=== PATIENT | female | born 1960 | race African-American/Black ===

== ENCOUNTER 2016-06-19 10:58 | Emergency (ER) | payer OTHER ==
[2016-06-19 11:09] VITALS: BP 140/78; PULSE 73; TEMP 98; BMI 31.2
--- NOTE | 2016-06-19 11:49 | PDOC ---
History of Present Illness - General Chief Complaint: Pain, Acute Stated Complaint: PAIN/ LT KNEE, LEG Time Seen by Provider: 06/19/16 11:31 History Source: Patient Exam Limitations: No Limitations - History of Present Illness Initial Comments: 06/19/16 11:46 55 yr female with left leg pain for 2 days started with pain in the knee then traveled to left calf and up thigh causing cramps at night. no trauma, no fever no foreign travel. no blood thinners. Pt is obese. Past History - Past Medical History Allergies/Adverse Reactions: Allergies Allergy/AdvReac Type Severity Reaction Status Date / Time No Known Allergies Allergy Verified 06/19/16 11:03 Home Medications: Ambulatory Orders Cyclobenzaprine HCl [Flexeril 10 mg] 5 mg PO TID PRN #21 tablet 06/19/16 Enalapril/Hydrochlorothiazide [Vaseretic 10-25 mg Tablet] 1 each PO DAILY Naproxen [Naprosyn -] 500 mg PO BID PRN #14 tablet 06/19/16 Oxycodone HCl/Acetaminophen [Percocet 5-325 mg Tablet] 1 - 2 tab PO Q4H Anemia: No Asthma: No Cancer: No Cardiac Disorders: No CVA: No COPD: No CHF: No Dementia: No Diabetes: No GI Disorders: No Disorders: No HTN: Yes (currently on treatment) Hypercholesterolemia: No Kidney Stones: No Liver Disease: No Suicide Attempt (Hx): No Seizures: No Thyroid Disease: No - Surgical History Abdominal Surgery: No Appendectomy: No Cardiac Surgery: No Cholecystectomy: No Lung Surgery: No Neurologic Surgery: No Orthopedic Surgery: No - Reproductive History PID: No - Psycho/Social/Smoking Cessation Hx Anxiety: No Suicidal Ideation: No Smoking History: Current every day smoker Have you smoked in the past 12 months: Yes Number of Cigarettes Smoked Daily: 6 Cigars Per Day: 0 Information on smoking cessation initiated: Yes 'Breaking Loose' booklet given: 06/19/16 Hx Alcohol Use: Yes Drug/Substance Use Hx: Yes Substance Use Type: Alcohol, Marijuana Hx Substance Use Treatment: Yes Review of Systems - Review of Systems Able to Perform ROS?: Yes Is the patient limited Syriac proficient: No Constitutional: No: Symptoms Reported HEENTM: No: Symptoms Reported Respiratory: No: Symptoms reported Cardiac (ROS): No: Symptoms Reported ABD/GI: No: Symptoms Reported, Abd. Pain w/ defecation : No: Symptoms Reported Musculoskeletal: Yes: See HPI *Physical Exam - Vital Signs Last Vital Signs Temp Pulse Resp BP Pulse Ox 98 F 73 16 140/78 100 06/19/16 11:04 06/19/16 11:04 06/19/16 11:04 06/19/16 11:04 06/19/16 11:04 - Physical Exam General Appearance: Yes: Nourished, Appropriately Dressed HEENT: positive: EOMI, VIKTORIA Neck: positive: Supple. negative: Tender Respiratory/Chest: positive: Lungs Clear, Normal Breath Sounds Cardiovascular: positive: Regular Rhythm, Regular Rate Gastrointestinal/Abdominal: positive: Normal Bowel Sounds, Soft Musculoskeletal: positive: Normal Inspection. negative: Vertebral Tenderness Extremity: positive: Normal Capillary Refill, Normal Inspection, Normal Range of Motion, Calf Tenderness, Other (nop swelling, no redness, FROM left hip, thigh, knee and ankle, mild lateral tenderness to the knee, no bony tenderness to hip or pelvis) Integumentary: positive: Normal Color, Dry, Warm ED Treatment Course - RADIOLOGY Radiology Studies Ordered: Category Date Time Status DUPLEX VASCUL US-1 LEG [US] Stat Ultrasound 06/19/16 11:44 Ordered Medical Decision Making - Medical Decision Making 06/19/16 11:48 cc: left knee pain (had xray yesterday at [facility] negative per report pt has with her) Pt also has prescription for MRI of left knee that pt has not made apt for as of yet. calf pain and spams at night on and off for 2-3 days , however pt states she has had this in the past. neg DVT negative DVT will prescribe flexeril and naprosyn pt states toradol helped the pain, feels better 06/19/16 13:40 *DC/Admit/Observation/Transfer Diagnosis at time of Disposition: Leg pain Qualifiers: Laterality: left Qualified Code(s): M79.605 - Pain in left leg Knee pain, left Qualifiers: Chronicity: acute Qualified Code(s): M25.562 - Pain in left knee - Discharge Dispostion Disposition: HOME Condition at time of disposition: Good - Prescriptions Prescriptions: Cyclobenzaprine HCl [Flexeril 10 mg] 5 mg PO TID PRN #21 tablet PRN Reason: Muscle Spasms Naproxen [Naprosyn -] 500 mg PO BID PRN #14 tablet PRN Reason: Pain - Referrals Referrals: Frida Kilgore [Primary Care Provider] - - Patient Instructions Additional Instructions: follow with the orthopedist Dr. Morgan for follow up and with your medical doctor take the naprosyn for pain and the flexeril for muscle spasm as directed
[2016-06-19] MEDS ORDERED: KETOROLAC TROMETHAMINE 60 MG/2 ML VIAL IM ONE (12:30)
[2016-06-19] MEDS ORDERED: KETOROLAC TROMETHAMINE 30 MG/1 ML VIAL ONE (12:32)
== END 2016-06-19 13:04 | disposition home or self-care (01) ==
LOC: JER 10:58
PROC: 3E0233Z Introduction of Anti-inflammatory into Muscle, Percutaneous Approach (ICD-10-PCS; principal; 2016-06-19)
DX: M25.562 Pain in left knee (principal); M79.605 Pain in left leg; F17.210 Nicotine dependence, cigarettes, uncomplicated; E66.9 Obesity, unspecified; Z68.31 Body mass index [BMI] 31.0-31.9, adult; I10 Essential (primary) hypertension
CPT/HCPCS: 93971-TC; 96372; 99281-25

== ENCOUNTER 2018-01-23 15:49 | Inpatient (IN) | payer OTHER ==
--- NOTE | 2018-01-23 16:14 | PDOC ---
Attending Attestation - HPI HPI: This patient is a 57 year old female with PMHx of hx of pre-DM, HTN, who presents with 2 days of body aches, chills, fever, and vomit. Patient comes in with diffuse myalgias. She notes a fever of 103 yesterday. Patient states that she vomited 3x this morning. She also reports 2 days of cough with yellow phlegm and some shortness of breath. She also notes decreased appetite for the past 2 days. Denies any rhinorrhea or nasal congestion. Denies any diarrhea, constipation, dysuria, hematuria, or hematochezia. Denies any chest pain or shortness of breath. - Physicial Exam PE: GENERAL: Awake, alert, and fully oriented, in no acute distress HEAD: No signs of trauma EYES: PERRLA, EOMI, sclera anicteric, conjunctiva clear ENT: Auricles normal inspection, hearing grossly normal, nares patent, oropharynx clear without exudates. Moist mucosa NECK: Normal ROM, supple, no lymphadenopathy, JVD, or masses LUNGS:Crackles in left lung base. No wheezes. HEART: Regular rate and rhythm, normal S1 and S2, no murmurs, rubs or gallops ABDOMEN: Soft, RLQ tenderness to deep palpation, normoactive bowel sounds. No guarding, no rebound. No masses EXTREMITIES: Normal range of motion, no edema. No clubbing or cyanosis. No cords, erythema, or tenderness NEUROLOGICAL: Cranial nerves II through XII grossly intact. Normal speech, normal gait SKIN: Warm, Dry, normal turgor, no rashes or lesions noted. <Deborah Branham - Last Filed: 01/23/18 17:31> - Medical Decision Making 01/23/18 18:23 Pt presents to the ED with cough, mild shortness of breath, diffuse myalgias and fever to 105. Also has nausea and vomiting. CXR shows evidence of L sided PNA. GIven high fever, will admit to medicine for continued management. Treated with broad spectrum antibiotics. <Sadaf Cooper - Last Filed: 01/23/18 18:26>
[2018-01-23] MEDS ORDERED: ACETAMINOPHEN 1000 MG/100 ML VIAL (NON FORMULARY) IVPB ONE (16:25)
[2018-01-23] MEDS ORDERED: ACETAMINOPHEN INJECTION 100 ML IVPB ONE (16:26)
--- NOTE | 2018-01-23 16:26 | PDOC ---
History of Present Illness - General Chief Complaint: SIRS, Suspected/Possible Stated Complaint: SICK Time Seen by Provider: 01/23/18 16:12 History Source: Patient Exam Limitations: No Limitations - History of Present Illness Initial Comments: 01/23/18 16:23 57 year old woman with history of prior alcohol abuse, pre-DM, HTN who presents with 2 days of coughing yellow phlegm, decreased appetite, body aches, chills, R sided abdominal pain and fever of 103F this AM w/ 3 episodes of NBNB emesis this AM. The patient denies diarrhea, constipation, dysuria, hematuria, blood in stool. Denies chest pain, shortness of breath or prior abdominal surgeries. She denies any recent travel or sick contacts. She denies rhinorrhea, nasal congestion or headaches. She denies any recent drug use or alcohol abuse. She has no other complaints at bedside. PMHX: as in HPI Meds: see below Allergies: NKDA Tob: none Etoh: none Rec drugs: none PCP: none Past History - Past Medical History Allergies/Adverse Reactions: Allergies Allergy/AdvReac Type Severity Reaction Status Date / Time No Known Allergies Allergy Verified 06/19/16 11:03 Home Medications: Ambulatory Orders Enalapril Maleate [Vasotec -] 5 mg PO DAILY 01/23/18 Hydrochlorothiazide [Hctz -] 25 mg PO DAILY 01/23/18 Meloxicam 7.5 mg PO PRN 01/23/18 Omeprazole 40 mg PO DAILY 01/23/18 Anemia: No Asthma: No Cancer: No Cardiac Disorders: No CVA: No COPD: No CHF: No Dementia: No Diabetes: No GI Disorders: No Disorders: No HTN: Yes (currently on treatment) Hypercholesterolemia: No Kidney Stones: No Liver Disease: No Seizures: No Thyroid Disease: No - Surgical History Abdominal Surgery: No Appendectomy: No Cardiac Surgery: No Cholecystectomy: No Lung Surgery: No Neurologic Surgery: No Orthopedic Surgery: No - Reproductive History PID: No - Suicide/Smoking/Psychosocial Hx Smoking History: Current every day smoker Have you smoked in the past 12 months: Yes Number of Cigarettes Smoked Daily: 5 Cigars Per Day: 0 Information on smoking cessation initiated: No 'Breaking Loose' booklet given: 06/19/16 Hx Alcohol Use: No Drug/Substance Use Hx: No Substance Use Type: Alcohol, Marijuana Hx Substance Use Treatment: Yes Review of Systems - Review of Systems Constitutional: Yes: See HPI, Chills, Diaphoresis, Fever HEENTM: No: Blurred Vision, Tinnitus Respiratory: Yes: Cough, Shortness of Breath Cardiac (ROS): No: Chest Pain, Palpitations, Syncope, Chest Tightness ABD/GI: Yes: See HPI, Diarrhea, Nausea, Vomiting. No: Constipated : No: Burning, Dysuria, Hematuria Musculoskeletal: No: Back Pain Integumentary: No: Rash Neurological: No: Headache, Numbness, Paresthesia, Tingling *Physical Exam - Vital Signs Last Vital Signs Temp Pulse Resp BP Pulse Ox 105.3 F H 88 20 123/65 93 L 01/23/18 16:11 01/23/18 16:11 01/23/18 16:11 01/23/18 16:11 01/23/18 16:11 - Physical Exam Comments: 01/23/18 17:03 GENERAL: Awake, alert, and fully oriented, tired,weak appearing slouching in bed , warm to touch HEAD: No signs of trauma, normocephalic, atraumatic EYES: PERRLA, EOMI, sclera anicteric, conjunctiva clear ENT: Auricles normal inspection, hearing grossly normal, nares patent, oropharynx clear without exudates. Moist mucosa NECK: Normal ROM, supple, no lymphadenopathy LUNGS: No distress, speaks full sentences, + rales in L base HEART: Regular rate and rhythm, normal S1 and S2, no murmurs, rubs or gallops, peripheral pulses normal and equal bilaterally. ABDOMEN: Soft, RLQ tenderness to deep palpation normoactive bowel sounds. No guarding, no rebound. No masses BACK: R CVA tenderness EXTREMITIES : Normal inspection, Normal range of motion, no edema. No clubbing or cyanosis. NEUROLOGICAL: Cranial nerves II through XII grossly intact. Normal speech, normal gait, no focal sensorimotor deficits SKIN: Warm, Dry, normal turgor, no rashes or lesions noted ED Treatment Course - LABORATORY CBC & Chemistry Diagram: 01/27/18 08:00 01/27/18 08:00 - RADIOLOGY Radiology Studies Ordered: Category Date Time Status CHEST X-RAY PORTABLE* [RAD] Stat Radiology 01/23/18 16:21 Ordered Medical Decision Making - Medical Decision Making 01/23/18 17:47 57 year old woman with history of prior alcohol abuse, pre-DM, HTN who presents with 2 days of coughing yellow phlegm, decreased appetite, body aches, chills, R sided abdominal pain and fever of 103F this AM w/ 3 episodes of NBNB emesis this AM. The patient denies diarrhea, constipation, dysuria, hematuria, blood in stool. DDX including but not limited to: sepsis 2/2 UTI vs pyelonephritis vs influenza vs appendicitis vs PNA W/U: - cbc, cmp, blood culture, lactic acid, PTT, PT/INR, trop, vbg - ua, ucx - EKG TX: - Vancomycin, Zosyn - Tylenol - 1L NS ED Course: 01/23/18 17:55 warm to touch, feels somewhat improved still fatigued. 01/23/18 18:17 influenza a and b negative WBC: 13.7 CXR: increased markings in L inrahilar area. Patient symptoms, history and physical exam consistent with pneumonia. CXR reading further supporting this diagnosis. As patient had abdominal tenderness on exam will assess for additional source for sepsis. Abd CT ordered. Pending read at this time. Medicine team contacted. Patient accepted to service. Patient informed of all lab and imaging results. Patient expressed understanding and agrees to plan for admission. *DC/Admit/Observation/Transfer Diagnosis at time of Disposition: Sepsis, Pneumonia - Discharge Dispostion Condition at time of disposition: Stable Decision to Admit order: Yes - Referrals - Patient Instructions - Post Discharge Activity
[2018-01-23] MEDS ORDERED: SODIUM CHLORIDE 1,000 ML IV SCH ×3 (16:30→20:45)
[2018-01-23] MEDS ORDERED: ONDANSETRON 4 MG/2 ML VIAL IVPUSH ONE (16:55)
[2018-01-23] MEDS ORDERED: VANCOMYCIN 1 GRAM (PRE-DOCKED) 1,000 MG/250 ML BAG IVPB ONE ×2 (16:56→17:03)
[2018-01-23] MEDS ORDERED: PIPERACILLIN/TAZOB 4.5 GM 4.5 GM in DEXTROSE 5%-WATER 100 ML IVPB ONE (16:56)
[2018-01-23] MEDS ORDERED: ONDANSETRON 4 MG/2 ML VIAL ONE (17:03)
[2018-01-23] MEDS ORDERED: PIPERACILLIN/TAZOB 4.5 GM 4.5 GM/100 ML BAG IVPB ONE (17:03)
[2018-01-23 17:10] LABS: VENOUS PC02 37.4 mmHg (38-52); VENOUS PH 7.47 (7.32-7.42)
[2018-01-23 17:11] LABS: VENOUS PO2 30.6 mmHg (28-48)
[2018-01-23 17:11] LABS: BASO % 0.3 % (0-2.0); HEMATOCRIT 38.5 % (32.4-45.2); HEMOGLOBIN 12.9 GM/dL (10.7-15.3); LYMPH % 5.5 % (8-40); MCH 27.8 pg (25.7-33.7); MCHC 33.4 g/dl (32.0-36.0); MEAN CELL VOLUME 83.2 fl (80-96); MEAN PLT VOLUME 9.4 fl (7.5-11.1); MONO % 2.8 % (3.8-10.2); NEUT % 91.4 % (42.8-82.8); PLATELET COUNT 210 K/MM3 (134-434); RBC 4.62 M/mm3 (3.60-5.2); RDW 14.8 % (11.6-15.6); WHITE BLOOD COUNT 13.7 K/mm3 (4.0-10.0)
[2018-01-23 17:33] LABS: INR 1.19 (0.83-1.09); PROTHROMBIN TIME (PATIENT) 14.1 SEC (9.7-13.0)
[2018-01-23 17:36] LABS: ACTIVATED PTT 38.3 SECONDS (25.2-36.5)
[2018-01-23 17:54] LABS: ALBUMIN 2.9 g/dl (3.4-5.0); ALK PHOS 60 U/L (45-117); ANION GAP 8 MMOL/L (8-16); BILIRUBIN,TOTAL 0.6 mg/dL (0.2-1); BLOOD UREA NITROGEN 9 mg/dL (7-18); CALCIUM 8.7 mg/dL (8.5-10.1); CHLORIDE 99 mmol/L (98-107); CO2 25 mmol/L (21-32); CREATININE 0.8 mg/dL (0.55-1.3); GLUCOSE,RANDOM 121 mg/dL (74-106); POTASSIUM 3.5 mmol/L (3.5-5.1); SGOT/AST 30 U/L (15-37); SGPT/ALT 24 U/L (13-61); SODIUM 133 mmol/L (136-145); TOT PROT 6.7 g/dl (6.4-8.2)
--- NOTE | 2018-01-23 18:42 | HP ---
CHIEF COMPLAINT: Cough x2 days PCP: Dr Kilgore HISTORY OF PRESENT ILLNESS: Pt is a 57 yo F with PMHx pre-DM, current everyday smoker, HTN, previous alcoholic (said last drink was 2012) presenting with 2 days hx of generalized body aches, chills, fever, and cough. Cough is productive of mucoid sputum, non bloody. There was associated nasal congestion and sorethroat for which she took theraflu with no relief. There is associated SOB worse with exertion but no PND or orthopnea. No leg swelling, no chest pain. She went to her PCP today and was referred when she was noted to be unstable on her feet and very weak. She reports loss of appetite for the past 2 days. Pt denies syncope, diarrhea, dysuria, hematuria or flank pain. She noted some groin/RLQ pain that she did not characterize. Pt denies taking flu vaccine/pneumonia vaccine. Works in a skilled nursing as an aide, otherwise notes no sick contacts. ER course was notable for: (1) Tmax-105.3, WBC-13.7, Na-133, LA-1.3 (2) Chest Xray- L infiltrate or atelectasis (3) Vanc-1g/zosyn 4.5, 1L (4) EKG- NSR 87bpm, nl axis, NSTE/NSTD, [id number] Recent Travel: PAST MEDICAL HISTORY: Per HPI PAST SURGICAL HISTORY: Denies Social History: [employer] per day [id number] Alcohol: Was an alcoholic (says last drink was 2012) Drugs: Denies Family History: Father DM, Mother Heart dx (recommended for stents) Allergies No Known Allergies Allergy (Verified 06/19/16 11:03) HOME MEDICATIONS: Ambulatory Orders Enalapril Maleate [Vasotec -] 5 mg PO DAILY 01/23/18 Hydrochlorothiazide [Hctz -] 25 mg PO DAILY 01/23/18 Meloxicam 7.5 mg PO PRN 01/23/18 Omeprazole 40 mg PO DAILY 01/23/18 REVIEW OF SYSTEMS CONSTITUTIONAL: Absent: fever+, chills+, diaphoresis, generalized weakness+, malaise+, loss of appetite+, weight change HEENT: Absent: rhinorrhea+, nasal congestion+, throat pain+, throat swelling, difficulty swallowing, mouth swelling, ear pain, eye pain, visual changes CARDIOVASCULAR: Absent: chest pain, syncope, palpitations, irregular heart rate, lightheadedness +, peripheral edema RESPIRATORY: Absent: cough, shortness of breath, dyspnea with exertion, orthopnea, wheezing, stridor, hemoptysis GASTROINTESTINAL: Absent: abdominal pain, abdominal distension, nausea, vomiting, diarrhea, constipation, melena, hematochezia GENITOURINARY: Absent: dysuria, frequency, urgency, hesitancy, hematuria, flank pain, genital pain MUSCULOSKELETAL: Absent: myalgia, arthralgia, joint swelling, back pain, neck pain SKIN: Absent: rash, itching, pallor HEMATOLOGIC/IMMUNOLOGIC: Absent: easy bleeding, easy bruising, lymphadenopathy, frequent infections ENDOCRINE: Absent: unexplained weight gain, unexplained weight loss, heat intolerance, cold intolerance NEUROLOGIC: Absent: headache, focal weakness or paresthesias, dizziness, unsteady gait, seizure, mental status changes, bladder or bowel incontinence PSYCHIATRIC: Absent: anxiety, depression, suicidal or homicidal ideation, hallucinations. PHYSICAL EXAMINATION Vital Signs - 24 hr 01/23/18 01/23/18 01/23/18 16:11 16:40 18:31 Temperature 105.3 F H 99.7 F H Pulse Rate 88 Pulse Rate [ 78 68 Apical] Respiratory 20 18 18 Rate Blood Pressure 123/65 Blood Pressure 116/60 102/78 [Left Arm] O2 Sat by Pulse 93 L 96 98 Oximetry (%) GENERAL: Awake, alert, and fully oriented, in no acute distress. HEAD: Normal with no signs of trauma. EYES: Pupils equal, round and reactive to light, extraocular movements intact, sclera anicteric, conjunctiva clear. EARS, NOSE, THROAT: Ears normal, nares patent, oropharynx clear without exudates. Moist mucous membranes. NECK: Normal range of motion, supple, no JVD, LUNGS: Bilateral crackles L>>R. HEART: Regular rate and rhythm, normal S1 and S2 , 2/6 diastolic murmur. ABDOMEN: Soft, nontender, not distended, normoactive bowel sounds, no guarding, no rebound, no masses. MUSCULOSKELETAL: Normal range of motion at all joints. No bony deformities or tenderness. No CVA tenderness. LOWER EXTREMITIES: 2+ pulses, warm, well-perfused. No calf tenderness. No peripheral edema. NEUROLOGICAL: Cranial nerves II-XII intact. Normal speech. Gait not observed, Symmetrical face and tongue, Normal tone, strength and sensation globally CBC, BMP 01/23/18 16:59 01/23/18 16:45 Laboratory Results - last 24 hr 01/23/18 01/23/18 01/23/18 16:45 16:45 16:45 WBC RBC Hgb Hct MCV MCH MCHC RDW Plt Count MPV Absolute Neuts (auto) Neutrophils % Lymphocytes % Monocytes % Eosinophils % Basophils % Nucleated RBC % PT with INR 14.10 H INR 1.19 H PTT (Actin FS) 38.3 H VBG pH 7.47 H POC VBG pCO2 37.4 L POC VBG pO2 30.6 Mixed VBG HCO3 26.7 H Sodium 133 L Potassium 3.5 Chloride 99 Carbon Dioxide 25 Anion Gap 8 BUN 9 Creatinine 0.8 Creat Clearance w eGFR > 60 Random Glucose 121 H Lactic Acid Calcium 8.7 Total Bilirubin 0.6 AST 30 ALT 24 Alkaline Phosphatase 60 Troponin I 0.02 Total Protein 6.7 Albumin 2.9 L 01/23/18 01/23/18 16:45 16:59 WBC 13.7 H RBC 4.62 Hgb 12.9 Hct 38.5 MCV 83.2 MCH 27.8 MCHC 33.4 RDW 14.8 Plt Count 210 D MPV 9.4 Absolute Neuts (auto) 12.6 H Neutrophils % 91.4 H Lymphocytes % 5.5 L Monocytes % 2.8 L Eosinophils % 0.0 Basophils % 0.3 Nucleated RBC % 0 PT with INR INR PTT (Actin FS) VBG pH POC VBG pCO2 POC VBG pO2 Mixed VBG HCO3 Sodium Potassium Chloride Carbon Dioxide Anion Gap BUN Creatinine Creat Clearance w eGFR Random Glucose Lactic Acid 1.3 Calcium Total Bilirubin AST ALT Alkaline Phosphatase Troponin I Total Protein Albumin ASSESSMENT/PLAN: Pt is a 57 yo F with PMHx pre-DM, current everyday smoker, HTN, previous alcoholic (said last drink was 2012) presenting with 2 days hx of generalized body aches, chills, fever, and cough Sepsis secondary to CAP Tmax-105.3, WBC-13.7, L lung infiltrate on CXR Ceftriaxone 2g daily Azithro 500mg daily NS @[address] abd done in ED-shows massive LL infiltrate pending official read PSI-83 points- risk class III, as current smoker would have a more severe disease would treat in patient HTN Pt takes enalapril at home Resume enalapril Hold hctz for now while being rehydrated Smoker Smoking cessation counselling Nicotine patch 7 TD Pre DM Hgb A1c Alcoholic hx Not in withdrawal at this point Watch for withdrawal May necessitate librium protocol if withdrawing FEN NS@100 Monitor lytes repelte as needed Sodium free diet Obesity Diet and execise counseling Lipid profile PPX Lovenox 40mg daily Dispo: In px Med Surg Visit type - Emergency Visit Emergency Visit: Yes ED Registration Date: 01/23/18 Care time: The patient presented to the Emergency Department on the above date and was hospitalized for further evaluation of their emergent condition. - New Patient This patient is new to me today: Yes Date on this admission: 01/24/18 - Critical Care Critical Care patient: No
[2018-01-23 19:46] LABS: URINE APPEARANCE SLCLOUDY; URINE BILIRUBIN NEGATIVE (<2.0 mg/dL); URINE COLOR DKYELLOW; URINE GLUCOSE (UA) NEGATIVE (NEGATIVE); URINE KETONE TRACE (NEGATIVE); URINE LEUK ESTERASE NEGATIVE (NEGATIVE); URINE NITRITE NEGATIVE (NEGATIVE); URINE PROTEIN 1+ (NEGATIVE); URINE UROBILINOGEN 4.0 E.U/dl mg/dL (0.2-1.0)
[2018-01-23] MEDS ORDERED: AZITHROMYCIN IVPB 500 MG in DEXTROSE 5%-WATER - 250 ML IVPB SCH (20:00)
[2018-01-23 20:10] LABS: EPI CELLS FEW /HPF (FEW); URINE HYALINE CAST 8 /lpf; URINE MUCUS RARE
--- NOTE | 2018-01-23 20:15 | PN ---
Teaching Attending Note Name of Resident: Gaby Mattson ATTENDING PHYSICIAN STATEMENT I saw and evaluated the patient. I reviewed the resident's note and discussed the case with the resident. I agree with the resident's findings and plan as documented. SUBJECTIVE: Patient is a 57 year old woman with PMHx of hx of pre-DM, HTN, who presents with 2 days of body aches, chills, fever, and vomit. Patient comes in with diffuse myalgias. She notes a fever of 103 yesterday. Patient states that she vomited 3 times this morning. She also reports 2 days of cough with yellow phlegm and some shortness of breath. She also notes decreased appetite for the past 2 days. Denies any rhinorrhea or nasal congestion. Denies any diarrhea, constipation, dysuria, hematuria, or hematochezia. Denies any chest pain or shortness of breath. Did not get flu or pneumonia vaccine. OBJECTIVE: Alert Vital Signs Period Temp Pulse Resp BP Sys/Ragland Pulse Ox Last 24 Hr 99.5 F-105.3 F 68-88 17-20 102-123/60-78 93-98 HEENT: No Jaundice, eye redness or discharge, PERRLA, EOMI. Normocephalic, atraumatic. External ears are normal and hearing is grossly intact. No nasal discharge. Neck: Supple, nontender. No palpable adenopathy or thyromegaly. No JVD Chest: Good effort. Bibasilar crackles. Clear to percussion. Heart: Regular. No S3, rub or murmur Abdomen: Not distended, soft, nontender and no HSM. No rebound or guarding. Normoactive bowel sounds. Ext: Peripheral pulses intact. No leg edema. Skin: Warm and dry. No petechiae, rash or ecchymosis. Neuro: Alert. Oriented x3. CN 2-12 grossly intact. Sensation grossly intact in all four extremities and DTR are symmetric. Current Medications Generic Name Dose Route Start Last Admin Trade Name Freq PRN Reason Stop Dose Admin Acetaminophen 650 mg 01/23/18 19:46 Tylenol - PO Q4H PRN FEVER Enoxaparin Sodium 40 mg 01/23/18 20:15 Lovenox - SQ DAILY PHONG Sodium Chloride 1,000 mls @ 0 mls/hr 01/23/18 19:00 01/23/18 19:12 Normal Saline - IV 1,000 mls/hr ASDIR [facility] Administration Wide Open Azithromycin 500 mg/ Dextrose 250 mls @ 250 mls/hr 01/23/18 20:00 IVPB DAILY [facility] Ceftriaxone Sodium 2 gm/ 100 mls @ 200 mls/hr 01/24/18 06:00 Dextrose IVPB DAILY@0600 [facility] Home Medications Medication Instructions Recorded Enalapril Maleate [Vasotec -] 5 mg PO DAILY 01/23/18 Hydrochlorothiazide [Hctz -] 25 mg PO DAILY 01/23/18 Meloxicam 7.5 mg PO PRN 01/23/18 Omeprazole 40 mg PO DAILY 01/23/18 Abnormal Lab Results 01/23/18 01/23/18 01/23/18 16:45 16:45 16:45 WBC Absolute Neuts (auto) Neutrophils % Lymphocytes % Monocytes % PT with INR 14.10 H INR 1.19 H PTT (Actin FS) 38.3 H VBG pH 7.47 H POC VBG pCO2 37.4 L Mixed VBG HCO3 26.7 H Sodium 133 L Random Glucose 121 H Albumin 2.9 L Ur Specific [place] Urine Protein Urine Ketones Urine Urobilinogen 01/23/18 01/23/18 16:59 19:30 WBC 13.7 H Absolute Neuts (auto) 12.6 H Neutrophils % 91.4 H Lymphocytes % 5.5 L Monocytes % 2.8 L PT with INR INR PTT (Actin FS) VBG pH POC VBG pCO2 Mixed VBG HCO3 Sodium Random Glucose Albumin Ur Specific [place] 1.048 H Urine Protein 1+ H Urine Ketones Trace H Urine Urobilinogen 4.0 e.u/dl H ASSESSMENT AND PLAN: 1. Sepsis due to left lung pneumonia - May have been preceded by viral syndrome. Will treat with IV ceftriaxone and azithromycin and IV NS at 100 ml/ hour. Urine legionella antigen pending. Counseled to get flu shot. 2. Hypoalbuminemia - Possibly due to combined effects of malnutrition and inflammation associated with comorbid chronic conditions. Will ensure adequate dietary protein intake and also consult computer networking instructor adjunct. 3. Tobacco Use We will provide patient all the necessary assistance to facilitate smoking cessation and prescribe Nicotine patch. 4. Obesity - Will provide patient all the necessary assistance, counseling and positive reinforcement to facilitate weight loss. Consult computer networking instructor adjunct. 5. DVT prophylaxis - Lovenox 40 mg SQ q 24 hours. 6. Advance directives - Full code
[2018-01-23 21:53] LABS: INR 1.2 (0.83-1.09); PROTHROMBIN TIME (PATIENT) 14.2 SEC (9.7-13.0)
[2018-01-23 21:56] LABS: ACTIVATED PTT 42.5 SECONDS (25.2-36.5)
[2018-01-23] MEDS ORDERED: HEPARIN NA (PORCINE) 5,000 UNITS/ML 1ML VIAL SQ SCH (22:00)
[2018-01-23] MEDS: ENOXAPARIN NA (PORCINE) 40 MG/0.4 ML DISP.SYRIN SQ SCH (22:47)
[2018-01-23] MEDS: ENALAPRIL MALEATE 5 MG TABLET (FP) PO SCH (22:48)
[2018-01-23] MEDS: SODIUM CHLORIDE 1,000 ML IV SCH (22:49)
[2018-01-23 22:51] LABS: PLATELET ESTIMATE ADEQUATE
[2018-01-23 23:31] VITALS: BMI 33.1
[2018-01-24] MEDS ORDERED: ONDANSETRON 4 MG/2 ML VIAL IVPUSH ONE (00:09)
[2018-01-24] MEDS: ACETAMINOPHEN 325 MG TABLET (FP) PO PRN ×3 (01:36→22:40)
[2018-01-24] MEDS ORDERED: DEXTROSE 5%-WATER 100 ML IVPB ONE (05:38)
[2018-01-24] MEDS ORDERED: CEFTRIAXONE 2 GM in DEXTROSE 5%-WATER 100 ML IVPB SCH (06:00)
[2018-01-24 07:39] LABS: BASO % 0.3 % (0-2.0); HEMATOCRIT 35.3 % (32.4-45.2); HEMOGLOBIN 11.7 GM/dL (10.7-15.3); LYMPH % 7.6 % (8-40); MCH 27.6 pg (25.7-33.7); MCHC 33.1 g/dl (32.0-36.0); MEAN CELL VOLUME 83.4 fl (80-96); MEAN PLT VOLUME 8.9 fl (7.5-11.1); NEUT % 89.1 % (42.8-82.8); PLATELET COUNT 193 K/MM3 (134-434); RBC 4.23 M/mm3 (3.60-5.2); RDW 15.3 % (11.6-15.6); WHITE BLOOD COUNT 9.8 K/mm3 (4.0-10.0)
[2018-01-24 08:33] LABS: ALBUMIN 2.4 g/dl (3.4-5.0); ALK PHOS 53 U/L (45-117); ANION GAP 9 MMOL/L (8-16); BILIRUBIN,TOTAL 0.5 mg/dL (0.2-1); BLOOD UREA NITROGEN 8 mg/dL (7-18); CALCIUM 7.4 mg/dL (8.5-10.1); CHLORIDE 101 mmol/L (98-107); CO2 26 mmol/L (21-32); CREATININE 0.8 mg/dL (0.55-1.3); GLUCOSE,RANDOM 116 mg/dL (74-106); MAGNESIUM 2.1 mg/dL (1.8-2.4); PHOSPHOROUS 1.8 mg/dL (2.5-4.9); POTASSIUM 3.4 mmol/L (3.5-5.1); SGOT/AST 30 U/L (15-37); SGPT/ALT 25 U/L (13-61); SODIUM 136 mmol/L (136-145); TOT PROT 5.9 g/dl (6.4-8.2)
[2018-01-24] MEDS ORDERED: AZITHROMYCIN IVPB 500 MG/250 ML BAG IVPB SCH (08:56)
[2018-01-24] MEDS ORDERED: PT OWN MED DRAWER 7, Y5N ONE (10:19)
--- NOTE | 2018-01-24 10:25 | EKG ---
Test Reason : Blood Pressure : / mmHG Vent. Rate : 087 BPM Atrial Rate : 087 BPM P-R Int : 128 ms QRS Dur : 094 ms QT Int : 352 ms P-R-T Axes : 050 070 045 degrees QTc Int : 423 ms POOR DATA QUALITY, INTERPRETATION MAY BE ADVERSELY AFFECTED NORMAL SINUS RHYTHM NONSPECIFIC ST AND T WAVE ABNORMALITY ABNORMAL ECG NO PREVIOUS ECGS AVAILABLE Confirmed by TL HICKS MD ([id number]) on 01/24/2018 10:25:03 AM Referred By: Confirmed By:TL HICKS MD
[2018-01-24] MEDS: ENALAPRIL MALEATE 5 MG TABLET (FP) PO SCH (10:33)
[2018-01-24] MEDS: NICOTINE 7 MG/24 HOURS TOPICAL PATCH TD SCH (10:34)
[2018-01-24] MEDS: ENOXAPARIN NA (PORCINE) 40 MG/0.4 ML DISP.SYRIN SQ SCH (10:34)
[2018-01-24] MEDS: SODIUM CHLORIDE 1,000 ML IV SCH (10:35)
[2018-01-24 12:47] LABS: CHOLESTEROL 106 mg/dL (50-200); HDL CHOLESTEROL 40 mg/dL (40-60); TRIGLYCERIDES 82 mg/dL (0-150)
--- NOTE | 2018-01-24 13:53 | PN ---
Progress Note (short form) - Note Progress Note: patient is doing well she said she has improved after the treatment, she is still producing phlegm with her cough that is dark yellow sometime blood tinged Sepsis secondary to CAP - LLL pneumonia will switch the patient to levofloxacin 750mg daily NS @100 acetaminophen for fever HTN Pt takes enalapril at home Resume enalapril Hold hctz for now while being rehydrated Smoker Smoking cessation counselling Nicotine patch 7 TD Alcoholic hx Not in withdrawal at this point Watch for withdrawal May necessitate librium protocol if withdrawing FEN NS@100 Monitor lytes repelte as needed Sodium free diet Obesity Diet and execise counseling Lipid profile PPX Lovenox 40mg daily
[2018-01-24] MEDS: PANTOPRAZOLE 40 MG TABLET (FP) PO SCH (17:19)
[2018-01-25] MEDS: SODIUM CHLORIDE 1,000 ML IV SCH (01:20)
--- NOTE | 2018-01-25 09:47 | PN ---
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
[2018-01-25] MEDS ORDERED: PT OWN MED DRAWER 7, Y5N ONE (10:19)
[2018-01-25] MEDS: NICOTINE 7 MG/24 HOURS TOPICAL PATCH TD SCH (10:23)
[2018-01-25] MEDS: ENOXAPARIN NA (PORCINE) 40 MG/0.4 ML DISP.SYRIN SQ SCH (10:23)
[2018-01-25] MEDS: ENALAPRIL MALEATE 5 MG TABLET (FP) PO SCH (10:24)
[2018-01-25 10:53] LABS: BASO % 0.4 % (0-2.0); HEMATOCRIT 34.9 % (32.4-45.2); HEMOGLOBIN 11.7 GM/dL (10.7-15.3); LYMPH % 9.7 % (8-40); MCH 27.9 pg (25.7-33.7); MCHC 33.6 g/dl (32.0-36.0); MEAN CELL VOLUME 83.1 fl (80-96); MEAN PLT VOLUME 8.8 fl (7.5-11.1); MONO % 3.5 % (3.8-10.2); NEUT % 86.4 % (42.8-82.8); PLATELET COUNT 215 K/MM3 (134-434); RDW 15.1 % (11.6-15.6); WHITE BLOOD COUNT 8.8 K/mm3 (4.0-10.0)
[2018-01-25 11:25] LABS: ALBUMIN 2.3 g/dl (3.4-5.0); ALK PHOS 59 U/L (45-117); ANION GAP 7 MMOL/L (8-16); BILIRUBIN,TOTAL 0.4 mg/dL (0.2-1); BLOOD UREA NITROGEN 7 mg/dL (7-18); CHLORIDE 105 mmol/L (98-107); CO2 27 mmol/L (21-32); CREATININE 0.6 mg/dL (0.55-1.3); GLUCOSE,RANDOM 92 mg/dL (74-106); MAGNESIUM 2.1 mg/dL (1.8-2.4); POTASSIUM 3.5 mmol/L (3.5-5.1); SGOT/AST 43 U/L (15-37); SGPT/ALT 38 U/L (13-61); SODIUM 139 mmol/L (136-145); TOT PROT 5.7 g/dl (6.4-8.2)
[2018-01-25] MEDS: PANTOPRAZOLE 40 MG TABLET (FP) PO SCH (14:27)
[2018-01-26] MEDS ORDERED: SODIUM PHOSPHATE - 30 MM in DEXTROSE 5%-WATER - 500 ML IVPB ONE (09:30)
[2018-01-26] MEDS ORDERED: PT OWN MED DRAWER 7, Y5N ONE (10:18)
[2018-01-26] MEDS: PANTOPRAZOLE 40 MG TABLET (FP) PO SCH (10:38)
[2018-01-26] MEDS: ENOXAPARIN NA (PORCINE) 40 MG/0.4 ML DISP.SYRIN SQ SCH (10:38)
[2018-01-26] MEDS: ENALAPRIL MALEATE 5 MG TABLET (FP) PO SCH (10:38)
[2018-01-26] MEDS: NICOTINE 7 MG/24 HOURS TOPICAL PATCH TD SCH (10:38)
--- NOTE | 2018-01-26 17:25 | PN ---
Teaching Attending Note Name of Resident: Gaby Mattson ATTENDING PHYSICIAN STATEMENT I saw and evaluated the patient. I reviewed the resident's note and discussed the case with the resident. I agree with the resident's findings and plan as documented. SUBJECTIVE: Seen and examined; no new complaints. Hemodynamically stable and afebrile. Phos very low this morning; replacing. If all improved will be able to DC tomorrow. Health department involved given positive legionella screen OBJECTIVE: VSS, reviewed labs Gen: AAOx3, NAD Lungs: sym exp, scattered ronchi CV: RRR s1/2 no mgr GI: Soft nt nd +bs Ext: No edema, +pulses ASSESSMENT AND PLAN: 1) Sepsis secondary to CAP - Legionella PNA suspected by prelim studies. Working with health department. Continue to cover with floroquinolone for 7-10 days total. Followup final cx results. 2) Hemoptysis: Check Tb skin test and CT chest. 3) HTN: Continue current meds; consider resuming thiazide prior to DC 4) Smoker: Smoking cessation counselling, Nicotine patch 7 TD 5) Alcoholic hx: No s/s WD; add CIWA protocol if this becomes evident. 6) Obesity: Diet and execise counseling
--- NOTE | 2018-01-26 17:36 | PN ---
Physical Exam: SUBJECTIVE: Patient seen and examined at bedside this morning. She endorses continued cough with streak of blood within sputum. Last bowel movement was yesterday, without diarrhea or hematochezia. Urinating well without dysuria, hematuria. Denies fevers, chills, shortness of breath, cough, chest pain, palpitations, abdominal pain, nausea, vomiting, diarrhea. OBJECTIVE: Vital Signs Period Temp Pulse Resp BP Sys/Ragland Pulse Ox Last 24 Hr 98.1 F-99.1 F 60-75 18-20 113-137/56-77 99-99 GENERAL: The patient is awake, alert, and fully oriented, in no acute distress. HEAD: Normal with no signs of trauma. EYES: PERRL, extraocular movements intact, sclera anicteric, conjunctiva clear. No ptosis. ENT: Ears normal, nares patent, oropharynx clear without exudates, moist mucous membranes. NECK: Trachea midline, full range of motion, supple. LUNGS: Breath sounds equal, crackles auscultated over left lower lung field. No wheezes. No accessory muscle use. HEART: Regular rate and rhythm, S1, S2 auscultated with 3/6 holosystlic murmur over left upper sternal border. ABDOMEN: Soft, nontender, nondistended, normoactive bowel sounds, no guarding, no rebound, no hepatosplenomegaly. EXTREMITIES: 2+ radial and dorsalis pedis pulses b/l, warm, well-perfused, no edema. NEUROLOGICAL: Cranial nerves II through XII grossly intact. Normal speech. Strength 5/5/ b/l upper and lower extremities. PSYCH: Normal mood, normal affect upon my encounter SKIN: Warm, dry, normal turgor, no rashes or lesions noted Laboratory Results - last 24 hr 01/26/18 01/26/18 09:25 16:00 Phosphorus 1.7 L 2.6 Active Medications Generic Name Dose Route Start Last Admin Trade Name Freq PRN Reason Stop Dose Admin Acetaminophen 650 mg 01/23/18 19:46 01/24/18 22:40 Tylenol - PO 650 mg Q4H PRN Administration FEVER Enalapril Maleate 5 mg 01/23/18 20:45 01/26/18 10:38 Vasotec - PO 5 mg DAILY PHONG Administration Enoxaparin Sodium 40 mg 01/23/18 20:15 10/15/18 10:38 Lovenox - SQ 40 mg DAILY PHONG Administration Levofloxacin 750 mg in 150 mls @ 150 mls/hr 01/25/18 10:00 01/26/18 12:15 Levaquin 750 Mg Premixed Ivpb - IVPB 150 mls/hr DAILY PHONG Administration Protocol Sodium Phosphate 30 mm/ 510 mls @ 63.75 mls/hr 01/26/18 09:30 01/26/18 10:39 Dextrose IVPB 01/26/18 17:29 63.75 mls/hr ONCE ONE Administration Nicotine 7 mg 01/24/18 10:00 01/26/18 10:38 Nicoderm Patch - TD 7 mg DAILY PHONG Administration Pantoprazole Sodium 40 mg 01/24/18 15:00 01/26/18 10:38 Protonix - PO 40 mg DAILY PHONG Administration ASSESSMENT/PLAN: Patient is a 57 year old female with history of pre-diabetes, hypertension, presents with history of malaise, fevers, chills, cough. Legionella Pneumonia -Urine positive for Legionella antigen -Levofloxacin 750mg IV daily -Tylenol 650mg PO Q6H Hempotysis -Follow up CT chest -Rule out TB- F/U quantiferon test Hypophosphatemia -Unclear etiology, will F/U 24hour urine phosphorus -Repleted with sodium phosphate 30mm Hypertenison -Enalapril 5mg PO daily History of Alcohol use -No clinical signs of withdrawal noted upon exam today. -Patient endorses last drink was 2012. -Will continue to monitor for signs of withdrawal and implement CIWA protocol if necessary History of smoking -Nicoderm patch 7mg FEN -No IV fluids -Hypophosphatemia resolved. Will follow BMP, Mg, Phos. -Sodium controlled diet Prophylaxis -Lovenox 40mg subq TID -Pantoprazole 40mg PO daily Disposition -Continue care in medical-surgical floor. Visit type - Emergency Visit Emergency Visit: Yes ED Registration Date: 01/23/18 Care time: The patient presented to the Emergency Department on the above date and was hospitalized for further evaluation of their emergent condition. - New Patient This patient is new to me today: Yes Date on this admission: 01/26/18 - Critical Care Critical Care patient: No - Discharge Referral Referred to [facility] Med P.C.: No
[2018-01-27 08:18] LABS: HEMATOCRIT 33.5 % (32.4-45.2); HEMOGLOBIN 11.4 GM/dL (10.7-15.3); MEAN CELL VOLUME 82.4 fl (80-96); MEAN PLT VOLUME 8.4 fl (7.5-11.1); PLATELET COUNT 287 K/MM3 (134-434); RBC 4.06 M/mm3 (3.60-5.2); RDW 15.1 % (11.6-15.6); WHITE BLOOD COUNT 5.5 K/mm3 (4.0-10.0)
[2018-01-27 08:39] LABS: ALBUMIN 2.1 g/dl (3.4-5.0); ALK PHOS 55 U/L (45-117); ANION GAP 7 MMOL/L (8-16); BILIRUBIN,TOTAL 0.3 mg/dL (0.2-1); BLOOD UREA NITROGEN 6 mg/dL (7-18); CHLORIDE 105 mmol/L (98-107); CO2 30 mmol/L (21-32); CREATININE 0.5 mg/dL (0.55-1.3); GLUCOSE,RANDOM 92 mg/dL (74-106); PHOSPHOROUS 3.1 mg/dL (2.5-4.9); POTASSIUM 3.2 mmol/L (3.5-5.1); SGOT/AST 58 U/L (15-37); SGPT/ALT 64 U/L (13-61); SODIUM 142 mmol/L (136-145); TOT PROT 5.5 g/dl (6.4-8.2)
[2018-01-27] MEDS: PANTOPRAZOLE 40 MG TABLET (FP) PO SCH (09:23)
[2018-01-27] MEDS: NICOTINE 7 MG/24 HOURS TOPICAL PATCH TD SCH (09:23)
[2018-01-27] MEDS: ENALAPRIL MALEATE 5 MG TABLET (FP) PO SCH (09:23)
[2018-01-27] MEDS: ENOXAPARIN NA (PORCINE) 40 MG/0.4 ML DISP.SYRIN SQ SCH (09:24)
[2018-01-27] MEDS ORDERED: POTASSIUM CHLORIDE TABS 20 MEQ TABLET.ER (FP) PO ONE (10:07)
[2018-01-27 14:47] VITALS: BP 156/74; PULSE 64; TEMP 98.3
--- NOTE | 2018-01-27 16:59 | DS ---
Physical Exam: SUBJECTIVE: Patient seen and examined at bedside this morning. Endorses cough with faint blood tinged sputum. Denies fevers, chills, shortness of breath, cough, chest pain, palpitations, abdominal pain, nausea, vomiting, diarrhea. OBJECTIVE: Vital Signs Period Temp Pulse Resp BP Sys/Ragland Pulse Ox Last 24 Hr 97.6 F-98.9 F 56-64 20-20 123-156/57-79 100-100 PHYSICAL EXAM GENERAL: The patient is awake, alert, and fully oriented, in no acute distress. HEAD: Normal with no signs of trauma. EYES: PERRL, extraocular movements intact, sclera anicteric, conjunctiva clear. No ptosis. ENT: Ears normal, nares patent, oropharynx clear without exudates, moist mucous membranes. NECK: Trachea midline, full range of motion, supple. LUNGS: Breath sounds equal, crackles auscultated over left lower lung field. No wheezes. No accessory muscle use. HEART: Regular rate and rhythm, S1, S2 auscultated with 3/6 holosystlic murmur over left upper sternal border. ABDOMEN: Soft, nontender, nondistended, normoactive bowel sounds, no guarding, no rebound, no hepatosplenomegaly. EXTREMITIES: 2+ radial and dorsalis pedis pulses b/l, warm, well-perfused, no edema. NEUROLOGICAL: Cranial nerves II through XII grossly intact. Normal speech. Strength 5/5/ b/l upper and lower extremities. PSYCH: Normal mood, normal affect upon my encounter SKIN: Warm, dry, normal turgor, no rashes or lesions noted LABS Laboratory Results - last 24 hr 01/26/18 01/27/18 01/27/18 16:00 08:00 08:00 WBC 5.5 RBC 4.06 Hgb 11.4 Hct 33.5 MCV 82.4 MCH 28.0 MCHC 34.0 RDW 15.1 Plt Count 287 D MPV 8.4 Sodium 142 Potassium 3.2 L Chloride 105 Carbon Dioxide 30 Anion Gap 7 L BUN 6 L Creatinine 0.5 L Creat Clearance w eGFR > 60 Random Glucose 92 Calcium 8.0 L Phosphorus 2.6 3.1 Magnesium 2.0 Total Bilirubin 0.3 AST 58 H ALT 64 H Alkaline Phosphatase 55 Total Protein 5.5 L Albumin 2.1 L HOSPITAL COURSE: Date of Admission:01/23/18 Date of Discharge: 01/27/18 Patient is a 57 year old female with history of pre-diabetes, hypertension, presents with history of malaise, fevers, chills, cough. Urine positive for Legionella antigen and started on Levofloxacin IV. She endorsed hemoptysis. CT chest showed b/l pleural effusions, with lower lobe atelectasis. Hypophosphatemia noted upon admission, likely secondary to loss from diarrhea. Phosphate was repleted, and level increased to normal range. Quantiferon test was performed and will be followed up with chief medical technologist as outpatient. Her HCTZ , was held, and enalapril reinstated for HTN. Patient was interviewed by health department, and discharged with Levofloxacin for 5 additional days, to complete 10 day antibiotic course, and Enalapril. Discharged to follow up primary care physician, chief medical technologist, within one week of discharge, and to follow department of health instructions. Minutes to complete discharge: 35 Discharge Summary Reason For Visit: SEPSIS, PNEUMONIA Condition: Stable - Instructions Diet, Activity, Other Instructions: You were admitted for Pneumonia (Legionella Pneumonia) and treated with antibiotics. You will follow up with the department of health. We held your hydrochlorothiazide, meloxicam, and omeprazole. You will stop these medications until you discuss with your primary care physician. You will continue taking antibiotic Levofloxacin 750mg daily for the next 5 days to complete total of 10 day antibiotic course. Instead you will take Enalapril 5mg daily for your blood pressure. You will follow up with Visitor Service Assistant (Dr. Desouza) within the next 3-5 days after discharge for the Legionella Pneumonia. It is advised that you stop smoking cigarettes. Please discuss with your primary care physician if you need any help quitting smoking. Further, you will follow up with your primary care provider regarding your blood sugar levels. You may need an HbA1c blood test at that appointment to measure your blood sugar levels. Limit sugars and carbohydrates in your diet, and eat vegetables, and lean meats. You will also follow up with your primary care provider within the next 3-5 days , Return to the nearest emergency department if you experience fevers, chills, shortness of breath, chest pain, palpitations, increased blood within the sputum , vomiting, diarrhea, worsening of symptoms. Referrals: July Diaz [Other] - 01/30/18 Simon Desouza MD [Staff Physician] - 1 Week Disposition: HOME - Home Medications Comprehensive Discharge Medication List: Ambulatory Orders Enalapril Maleate [Vasotec -] 5 mg PO DAILY 15 Days #15 tablet 01/27/18 Levofloxacin 750 mg PO DAILY 5 Days #5 tablet 01/27/18 This patient is new to me today: No Emergency Visit: Yes ED Registration Date: 01/23/18 Care time: The patient presented to the Emergency Department on the above date and was hospitalized for further evaluation of their emergent condition. Critical Care patient: No - Discharge Referral Referred to [facility] Med P.C.: No
== END 2018-01-27 16:34 | disposition home or self-care (01) | DRG 720 ==
LOC: JER 15:49 → JERBED 18:51 → J7W 20:30
PROVIDERS: ADMIT Internal Medicine; ATTEND Internal Medicine
DX: A41.9 Sepsis, unspecified organism (principal); A48.1 Legionnaires' disease; J90 Pleural effusion, not elsewhere classified; E88.09 Other disorders of plasma-protein metabolism, not elsewhere classified; E83.39 Other disorders of phosphorus metabolism; R04.2 Hemoptysis; I10 Essential (primary) hypertension; F10.10 Alcohol abuse, uncomplicated; J98.11 Atelectasis; R73.03 Prediabetes; F17.210 Nicotine dependence, cigarettes, uncomplicated; E66.9 Obesity, unspecified; Z68.33 Body mass index [BMI] 33.0-33.9, adult
CPT/HCPCS: 36415; 71045-TC-FY; 71250-TC; 74177-TC; 80053; 80061; 81003; 81015; 82803; 83036; 83605; 83721; 83735; 84100; 84484; 85025; 85027; 85610; 85730; 87040; 87070; 87086; 87804; 87899; 93005; 93010; 99283-25; J0131; J7030

== ENCOUNTER 2024-04-02 04:40 | Day surgery (SDC) | payer OTHER ==
[2024-04-01 13:04] VITALS: BMI 33.2
[2024-04-02] MEDS ORDERED: LIDOCAINE VISCOUS 2% ORAL/TOP 15 ML UNIT-DOSE CUP ONE (15:02)
[2024-04-02 15:53] VITALS: TEMP 97.5
[2024-04-02 16:15] VITALS: BP 162/85; PULSE 64; RESP 17
== END 2024-04-02 16:45 | disposition home or self-care (01) ==
LOC: JASU-ENDO 04:40
PROVIDERS: ATTEND Student in an Organized Health Care Education/Training Program
PROC: 0DBN8ZX Excision of Sigmoid Colon, Via Natural or Artificial Opening Endoscopic, Diagnostic (ICD-10-PCS; 2024-04-02)
PROC: 0DB38ZX Excision of Lower Esophagus, Via Natural or Artificial Opening Endoscopic, Diagnostic (ICD-10-PCS; 2024-04-02)
PROC: 0DB78ZX Excision of Stomach, Pylorus, Via Natural or Artificial Opening Endoscopic, Diagnostic (ICD-10-PCS; 2024-04-02)
PROC: 0DB68ZX Excision of Stomach, Via Natural or Artificial Opening Endoscopic, Diagnostic (ICD-10-PCS; 2024-04-02)
PROC: 0DBK8ZX Excision of Ascending Colon, Via Natural or Artificial Opening Endoscopic, Diagnostic (ICD-10-PCS; principal; 2024-04-02 14:45)
DX: Z12.11 Encounter for screening for malignant neoplasm of colon (principal); D12.2 Benign neoplasm of ascending colon; K63.5 Polyp of colon; K64.8 Other hemorrhoids; K44.9 Diaphragmatic hernia without obstruction or gangrene; K29.50 Unspecified chronic gastritis without bleeding; R13.10 Dysphagia, unspecified
CPT/HCPCS: 88305-TC; 88342-TC

== ENCOUNTER 2024-06-01 11:39 | Emergency (ER) | payer OTHER ==
[2024-06-01] MEDS ORDERED: IBUPROFEN 400 MG TABLET (FP) PO ONE (12:49)
[2024-06-01] MEDS: IBUPROFEN 400 MG TABLET (FP) PO ONE (12:54)
[2024-06-01 13:15] VITALS: BP 158/85; PULSE 77; RESP 18; TEMP 98.1; BMI 33.0
== END 2024-06-01 13:27 | disposition home or self-care (01) ==
LOC: JER 11:39
DX: R20.0 Anesthesia of skin (principal); R20.2 Paresthesia of skin; R25.2 Cramp and spasm; M25.511 Pain in right shoulder; M25.512 Pain in left shoulder; M79.641 Pain in right hand; M79.642 Pain in left hand; M54.2 Cervicalgia
CPT/HCPCS: 93005; 93010; 99283-25